=== PATIENT | female | born 1965 | race Caucasian/White ===

== ENCOUNTER 2016-12-04 09:15 | Inpatient (IN) | payer OTHER ==
[~2016-12-04] VITALS: Ht 167.6 cm; Wt 84.2 kg
[2016-12-04 09:54] LABS: EOSINOPHIL (%) 0 % (0-5); HEMATOCRIT 39.6 % (36.0-46.0); IMMATURE GRANULOCYTE (%) 0.2 % (0.0-0.7); IMMATURE GRANULOCYTE COUNT 0.3 K/uL; LYMPHOCYTE COUNT 0.9 K/uL (1.0-2.8); MCH 28.8 PG (29.0-34.0); MCHC 33.6 G/DL (30.0-36.0); MCV 85.7 FL (83-99); MEAN PLAT.VOLUME 9.6 uM^3 (9.5-12.4); MONOCYTE (%) 5.7 % (3-12); MONOCYTE COUNT 0.9 K/uL (0-0.8); NEUTROPHIL (%) 88.5 % (45-76); NEUTROPHIL COUNT 13.7 K/uL (1.8-6.4); PLATELET COUNT 306 K/uL (156-360); RBC DIS.WIDTH-CV 12.5 % (11.8-14.6); RBC DIS.WIDTH-SD 38.4 % (39-53); RED BLOOD COUNT 4.62 M/uL (3.80-5.20); WHITE BLOOD COUNT 15.5 K/uL (4.1-10.2)
[2016-12-04 10:01] LABS: CHLORIDE 104 mEq/L (99-109); POTASSIUM 4.1 mEq/L (3.7-5.4); SODIUM 144 mEq/L (136-147)
[2016-12-04 10:03] LABS: GLUCOSE 128 mg/dL (70-99)
[2016-12-04 10:05] LABS: ANION GAP 18 MEQ/L (2-14)
[2016-12-04 10:06] LABS: SERUM ETHYL ALCOHOL < 10 mg/dL
[2016-12-04 10:07] LABS: GFR ESTIMATE (CALCULATED) 46 mL/min/
[2016-12-04 10:08] LABS: UREA NITROGEN (BUN) 21 mg/dL (9-23)
[2016-12-04] MEDS ORDERED: LORAZEPAM0.5 MG PO (15:54)
[2016-12-04] MEDS ORDERED: IBUPROFEN600 MG PO (15:54)
[2016-12-04] MEDS ORDERED: TRAZODONE HCL50 MG PO (15:54)
[2016-12-04] MEDS ORDERED: BUPROPION XL150 MG PO (15:55)
[2016-12-04] MEDS ORDERED: PROPRANOLOL HCL10 MG PO (15:55)
[2016-12-04] MEDS ORDERED: ABILIFY20 MG PO (15:55)
[2016-12-04] MEDS ORDERED: SERTRALINE HCL100 MG PO (15:55)
[2016-12-04 17:16] VITALS: BP 126/88
[2016-12-05 08:03] VITALS: BP 99/51
[2016-12-05 12:05] VITALS: BP 116/54
[2016-12-05 15:51] VITALS: BP 105/50
[2016-12-06 07:49] VITALS: BP 97/47
[2016-12-06 15:23] VITALS: BP 112/57
[2016-12-07 09:39] VITALS: BP 124/66
[2016-12-07 15:44] VITALS: BP 107/62
[2016-12-07 21:13] VITALS: BP 123/65
[2016-12-08 07:26] VITALS: BP 100/49
[2016-12-08 09:11] VITALS: BP 102/51
[2016-12-08 15:58] VITALS: BP 110/57
[2016-12-09 07:40] VITALS: BP 98/53
[2016-12-09] MEDS ORDERED: SERTRALINE HCL100 MG PO (10:30)
== END 2016-12-09 12:08 | disposition home or self-care (01) | DRG 885 ==
LOC: EDBD 09:15 → EME 09:15 → 1WEST 13:39 → EDOF 13:39 → 1WEST 17:07
PROVIDERS: Emergency Medicine
DX: F31.5 Bipolar disorder, current episode depressed, severe, with psychotic features (principal); Z91.19 Patient's noncompliance with other medical treatment and regimen
CPT/HCPCS: 80048; 81003; 85025; 90837; 97150 GO; 97165 GO; 99281; 99285; G0480; J1630; J2060

== ENCOUNTER 2018-03-27 02:57 | Emergency (ER) | payer OTHER ==
[~2018-03-27] VITALS: Ht 162.6 cm; Wt 91.4 kg
[~2018-03-27 02:57] MED LIST: ABILIFY20 MG PO; BUPROPION XL150 MG PO; IBUPROFEN600 MG PO; LORAZEPAM0.5 MG PO; PROPRANOLOL HCL10 MG PO; SERTRALINE HCL100 MG PO; TRAZODONE HCL50 MG PO
[2018-03-27 03:59] LABS: HEMATOCRIT 36.1 % (36.0-46.0); HEMOGLOBIN 12.1 G/DL (11.9-15.5); MCH 29.6 PG (29.0-34.0); MCHC 33.5 G/DL (30.0-36.0); MCV 88.3 FL (83-99); PLATELET COUNT 247 K/uL (156-360); RBC DIS.WIDTH-CV 11.9 % (11.8-14.6); RBC DIS.WIDTH-SD 38.5 % (39-53); RED BLOOD COUNT 4.09 M/uL (3.80-5.20); WHITE BLOOD COUNT 7.4 K/uL (4.1-10.2)
[2018-03-27 04:30] LABS: ALBUMIN 4.2 g/dL (3.2-4.8); CHLORIDE 104 mEq/L (99-109); POTASSIUM 4.1 mEq/L (3.7-5.4); SODIUM 141 mEq/L (136-147)
[2018-03-27 04:32] LABS: GLUCOSE 127 mg/dL (70-99)
[2018-03-27 04:33] LABS: TOTAL PROTEIN 7.3 g/dL (6.4-8.3)
[2018-03-27 04:34] LABS: TOTAL BILIRUBIN 0.5 mg/dL (0.0-1.0)
[2018-03-27 04:36] LABS: ALKALINE PHOSPHATASE 83 IU/L (3-129); CREATININE 1.1 mg/dL (0.6-1.3); GFR ESTIMATE (CALCULATED) 56 mL/min/
[2018-03-27 04:37] LABS: UREA NITROGEN (BUN) 20 mg/dL (9-23)
[2018-03-27 04:38] LABS: AST (GOT) 18 IU/L (2-34)
[2018-03-27 04:39] LABS: ALT (GPT) 24 IU/L (3-49); LIPASE 38 U/L (1.0-51.0)
[2018-03-27] MEDS ORDERED: NORCO 5/3251 TABLET PO (05:08)
[2018-03-27 05:25] VITALS: BP 140/88
== END 2018-03-27 05:25 | disposition home or self-care (01) ==
LOC: EME 02:57 → EXP 02:57
PROVIDERS: Emergency Medicine
DX: K80.20 Calculus of gallbladder without cholecystitis without obstruction (principal); F32.9 Major depressive disorder, single episode, unspecified; F41.9 Anxiety disorder, unspecified
CPT/HCPCS: 76705; 80053; 83690; 85027; 99281; 99284